=== PATIENT | female | born 1965 | race Caucasian/White ===

== ENCOUNTER → 2023-05-26 13:21 | Outpatient (REF) | payer OTHER, SELFPAY | LOC: RAD 13:21 | PROVIDERS: ATTENDING PHYSICIAN Internal Medicine | DX: I65.21 Occlusion and stenosis of right carotid artery (principal) | CPT/HCPCS: 93880 ==

== ENCOUNTER → 2024-02-24 11:33 | Outpatient (REF) | payer OTHER, SELFPAY | LOC: HWRAD 11:33 | PROVIDERS: ATTENDING PHYSICIAN Internal Medicine Critical Care Medicine; FAMILY PHYSICIAN Internal Medicine | DX: R91.1 Solitary pulmonary nodule (principal) | CPT/HCPCS: 71250 ==

== ENCOUNTER 2024-03-21 12:08 | Emergency (ER) | payer OTHER, SELFPAY ==
[2024-03-21] VITALS (9 sets, daily range): BP systolic 138–178; BP diastolic 63–78; BMI 27.5
[2024-03-21 12:12] LABS: Glucose - Point of Care 101 mg/dl (70-99)
--- NOTE | 2024-03-21 12:23 | ED.GENMED ---
History of Present Illness
General
Chief Complaint: Headache
Time Seen by Provider: 03/21/24 12:14
History of Present Illness
History of Present Illness:
TIME OF INITIAL ENCOUNTER: 12:18 PM
HPI: Patient presents due to severe headache. This started around 9 AM today. It worsened about an hour prior to arrival. She was seen by EMS who noted ill appearance but did not have a focal neurologic examination. tells me that the
patient had a headache last night but similar headaches in the past. Today's headache was markedly worse.
EXAM:
GENERAL: The patient is ill-appearing, she is hypertensive
HEENT: Moist oral mucosa
CARDIOVASCULAR: No murmurs, normal heart rate, regular rhythm, No chest wall tenderness
PULMONARY: No respiratory distress, breath sounds are clear and equal
ABDOMEN: Soft with no peritoneal signs, no tenderness
NEUROLOGIC: Equally weak strength in all extremities, no coordination deficits, speaks in one-word sentences and low-volume
PSYCHIATRIC: Appears lethargic, limited insight and judgement
EXTREMITIES: Nontender, no edema, moves all extremities equally
SKIN: She is diaphoretic
NUMBER AND COMPLEXITY OF PROBLEMS ADDRESSED AT THE ENCOUNTER
� Chronic conditions affecting care: Former smoker, history of depression
� Acute Exacerbation and/or Progression of Chronic Illness: This is an acute problem
� Differential Diagnosis includes: Nonspecific headache, SAH, other intracranial hemorrhage
AMOUNT AND/OR COMPLEXITY OF DATA TO BE REVIEWED AND ANALYZED
� I performed an independent evaluation of and my interpretation is:
EKG: Sinus 42, leftward axis deviation
CT: CT shows large SAH
X-rays:
Laboratory Studies: CBC and chemistries unremarkable, initial glucose 101
Other:
� Review of other/old records: The patient was seen here in 2019 with a laceration
� Clinical information was obtained by an independent historian: I spoke to the at bedside. He also indicates the patient had a minor headache last night similar to what she has had in the past.
� Prescriptions/Medications Considered but not given:
� Further testing considered but not performed: Considered CTA however the flight crew was very quickly available and did not want to delay transfer therefore sent to [place] without CT
RISK OF COMPLICATIONS AND/OR MORBIDITY OR MORTALITY OF PATIENT MANAGEMENT
� Social determinants of health affecting care: Lives at home
� Discussion with other providers: Initially discussed with Dr. Cortes upon arrival; she was sent immediately for CT but bleed noted on CT. I then immediately discussed with Dr. Joleen Gary who recommends flying patient to [place].
Dr. Gay accepts.
� Escalation of care including admission/observation vs risk of discharge considered: Patient transferred to [place]
ANY OTHER UPDATES:
1:11 PM: She has been on Cardene and I gave her a dose of Keppra. Flight crew has arrived.
1:20 PM: Essentially unchanged neurologic examination. She primarily keeps her eyes closed but awakens with stimulation and is interactive.
Past History
Past History
ED Past Medical History: None
ED Past Surgical History: None
Phy Exam
Physical Exam
Physical Exam:
See HPI
Course
Orders/Labs/Results
Orders:
Orders
03/21/24 12:11
Electrocardiogram (*1) Urgent
Reason for Study: Vertigo / Dizzy
CT Head W/o Iv Contrast Urgent
Comment:
Reason For Exam: severe headache
EKG- Treatment ONCE
03/21/24 12:12
Complete Blood Count/With Diff Urgent
Comprehensive Metabolic Panel Urgent
03/21/24 12:25
Levetiracetam Injectable [Keppra] 1,000 mg IV NOW STA
03/21/24 12:29
PT/INR [Prothrombin Time] Urgent
PTT Urgent
Troponin I Urgent
03/21/24 12:30
Nicardipine 40 mg/200 ml [Cardene] 40 mg in 200 ml IV PER PROTOCOL
Initial dose in mg/hr, then titrate:: 2.5
Titrate to keep:: Other
Titrate to keep other:: SBP <110
Titrate by mg/hr:: 2.5 mg/hr
Frequency of titrations (minutes):: 5-15 minutes
Maximum dose in mg/hr:: 15
Begin to taper infusion when:: Remained at goal for 2hrs
Taper by mg/hr:: 2.5 mg/hr
Frequency of taper (minutes) if patient maintains goal:: every 15-30 minutes
Taper to off?: Yes
If infusion off & no longer maintaining goal:: Contact Provider
Abnormal Lab Results
03/21/24 03/21/24
12:10 12:12
Abs Immat Gran (auto) 0.1 H 10^3/uL
(0-0.05)
Absolute Lymphs (auto) 3.6 H 10^3/uL
(1.2-3.4)
Absolute Monos (auto) 0.7 H 10^3/uL
(0.1-0.6)
Immature Gran % 0.8 H %
(0-0.5)
Glucose 112 H mg/dl
(70-99)
AST 52 H U/L
(14-36)
Albumin 5.1 H g/dl
(3.5-5.0)
POC Glucose 101 H mg/dl
(70-99)
03/21/24 12:12
03/21/24 12:12
Vital Signs
Initial and Last Documented VS:
Initial Vital Signs
BP
178/78
03/21/24 12:09
Last Documented Vital Signs
Temp Pulse Resp BP Pulse Ox
36.9 C 57 18 138/63 97
03/21/24 12:10 03/21/24 13:10 03/21/24 13:10 03/21/24 13:10 03/21/24 13:10
*Critical Care Note
Total Time (30-74mins, 75-104mins- exclusive of procedures): 60min
comment:
The patient was seen immediately upon arrival. Large SAH noted. I emergently discussed case with neurosurgery who recommends we fly patient to [place]. Dr. Gay accepts. I have given the patient Cardene as well as Kemichaelra. BP has been improving.
ED Attending Note
-
Portions of this chart may have been created with voice recognition software.� Occasional wrong word or��sound alike� substitutions may have occurred due to the inherent limitations of voice recognition software.
Discharge Plan
Departure
Patient Disposition: Acute Care Hospital
Date of Disposition: 03/21/24
Time of Disposition: 12:32
Discharge Problem:
Subarachnoid hemorrhage
Prescriptions:
No Action
sertraline 50 mg Tablet
50 mg PO DAILY
rosuvastatin [Crestor] 5 mg Tablet
5 mg PO DAILY
acetaminophen [Tylenol] 325 mg Tablet
650 mg PO Q6HPRN PRN (Reason: mild pain)
nicotine (polacrilex) 2 mg Gum
2 mg BUCCAL Q3HPRN PRN (Reason: smoking )
Hospital Transfer
Other hospital: [place]
I certify that the patient requires transfer: Yes
Discussed case with accepting physician: Dr. Gay
Reason for transfer: higher level of care
Interventions
Interventions:
*Risk Screen - Suicide Last Done: 03/21/24 12:10
*General Assessment Last Done: 03/21/24 12:10
*Neglect/Abuse Screening Last Done: 03/21/24 12:10
ED- Fall Risk Assessment Last Done: 03/21/24 12:10
*ED COVID-19 Vaccine History Last Done: 03/21/24 12:10
*Nursing Disposition Last Done: 03/21/24 13:28
ED- Neurological Assessment Last Done: 03/21/24 12:10
Discharge Date and Time
Discharge Date/Time: 03/21/24 13:45
Print Language: MOZAMBICAN
[2024-03-21 12:30] LABS: % Basophils 1.3 % (0-2); % Eosinophils 1.7 % (0-6); % Immature Granulocytes 0.8 % (0-0.5); % Lymphocytes 34.3 % (20.5-51.1); % Monocytes 6.4 % (1.7-9.3); % Neutrophils 55.5 % (42.2-75.2); Absolute Basophils 0.1 10^3/uL (0-0.2); Absolute Eosinophils 0.2 10^3/uL (0-0.7); Absolute Immature Granulocytes 0.1 10^3/uL (0-0.05); Absolute Lymphocytes 3.6 10^3/uL (1.2-3.4); Absolute Monocytes 0.7 10^3/uL (0.1-0.6); Absolute Neutrophils 5.8 10^3/uL (1.4-6.5); Hematocrit 44.5 % (37.0-47.0); Hemoglobin 15.1 g/dL (12.0-16.0); Mean Corp Hgb Conc. 33.9 g/dL (33.0-37.0); Mean Corpuscular Hgb 29.1 pg (27.0-31.0); Mean Corpuscular Volume 85.7 fL (81.0-99.0); Mean Platelet Volume 9.1 fL (7.4-10.4); Nucleated Red Blood Cells % 0 %; Platelet Count 304 10^3/uL (130-400); Red Blood Cell Count 5.19 10^6/uL (4.20-5.40); Red Cell Dist. Width 12.7 % (11.5-14.5); White Blood Cell Count 10.5 10^3/uL (4.8-10.8)
[2024-03-21] MEDS: CARDENE 200 IV (12:34)
[2024-03-21] MEDS: KEPPRA 1000 MG IV (12:34)
[2024-03-21 12:37] LABS: ALT (SGPT) 24 U/L (0-35); AST (SGOT) 52 U/L (14-36); Albumin 5.1 g/dl (3.5-5.0); Alkaline Phosphatase 44 U/L (38-126); Blood Urea Nitrogen 14 mg/dl (7-17); Calcium 9.7 mg/dl (8.4-10.2); Carbon Dioxide 22 mmol/L (22-30); Chloride 107 mmol/L (98-107); Glucose 112 mg/dl (70-99); Potassium 3.6 mmol/L (3.5-5.1); Sodium 144 mmol/L (135-145); Total Bilirubin 0.4 mg/dl (0.2-1.3); Total Protein 7.7 g/dl (6.3-8.2); eGFR > 60.00
--- NOTE | 2024-03-21 12:45 | EDRN ---
Dr. Coles at the bedside speaking with the pts
[2024-03-21 12:50] LABS: APTT 25.1 Sec (23.4-35.0); INR 0.94; PT 12.8 Sec (11.4-14.6)
--- NOTE | 2024-03-21 12:56 | EDRN ---
Cardene gtt started at 2.5mg/hour for hypertension, Keppra IV administered, the pt is resting in stretcher in the lowest position, side rails up x2, call roach within reach, HOB elevated, the pt is obtunded, seizure precautions in place, this RN was
unable to complete NIH stroke assessment, the pt was not able to follow commands, the pt is responsive to painful stimuli, the pts has been update on the plan of care by the provider, machine records units supervisor setting up flight crew to take the pt to [place]
--- NOTE | 2024-03-21 13:09 | EDRN ---
this RN attempted to call verbal report to the receiving [place] nurse at [phone] and there was no answer
[2024-03-21 13:11] LABS: Troponin I < 0.012 ng/ml
--- NOTE | 2024-03-21 13:13 | EDRN ---
[facility] has arrived and is currently at the pts bedside, this RN attempted to call verbal report to the receiving [facility] nurse at [phone] and spoke to the receiving nurse Deepa DUNCAN
--- NOTE | 2024-03-21 13:23 | EDRN ---
unable to test the pts strength due to the pt unable to follow commands, however the pt does move all extremities, + corneal reflex noted, the pts pupils are currently still 4 and slow to respond
== END 2024-03-21 13:45 | disposition short-term general hospital (02) ==
LOC: EMR 12:08
PROVIDERS: EMERGENCY PHYSICIAN Emergency Medicine; FAMILY PHYSICIAN Internal Medicine
DX: I60.9 Nontraumatic subarachnoid hemorrhage, unspecified (principal)
CPT/HCPCS: 99291; 96365; 96375; 70450; 80053; 82962; 84484; 85025; 85610; 85730; 93005

== ENCOUNTER → 2024-06-01 16:20 | Outpatient (REF) | payer OTHER, SELFPAY | LOC: WDC 16:20 | PROVIDERS: ATTENDING PHYSICIAN Obstetrics & Gynecology Gynecology; FAMILY PHYSICIAN Internal Medicine | DX: N60.99 Unspecified benign mammary dysplasia of unspecified breast (principal); M25.551 Pain in right hip; M54.50 Low back pain, unspecified; G89.29 Other chronic pain | CPT/HCPCS: 72110; 73502; 77063; 77067 ==

== ENCOUNTER 2024-08-24 08:42 | Outpatient (RCR) | payer OTHER, SELFPAY | END 2024-08-24 23:59 | disposition home or self-care (01) | LOC: RPT 08:42 | PROVIDERS: ATTENDING PHYSICIAN Orthopaedic Surgery; FAMILY PHYSICIAN Internal Medicine | DX: M25.551 Pain in right hip (principal); Z73.6 Limitation of activities due to disability; M16.11 Unilateral primary osteoarthritis, right hip; M62.81 Muscle weakness (generalized) | CPT/HCPCS: 97110; 97162; 97535 ==

== ENCOUNTER 2024-09-21 18:00 | Outpatient (RCR) | payer OTHER, SELFPAY | END 2024-09-21 23:59 | disposition home or self-care (01) | LOC: RPT 18:00 | PROVIDERS: ATTENDING PHYSICIAN Orthopaedic Surgery; FAMILY PHYSICIAN Internal Medicine | DX: M25.551 Pain in right hip (principal) | CPT/HCPCS: 97110; 97140; 97535 ==

== ENCOUNTER 2024-10-05 17:03 | Outpatient (RCR) | payer OTHER, SELFPAY | END 2024-10-10 07:08 | disposition home or self-care (01) | LOC: RPT 17:03 | PROVIDERS: ATTENDING PHYSICIAN Orthopaedic Surgery; FAMILY PHYSICIAN Internal Medicine | DX: M25.551 Pain in right hip (principal); Z73.6 Limitation of activities due to disability; M62.81 Muscle weakness (generalized); M16.11 Unilateral primary osteoarthritis, right hip | CPT/HCPCS: 97110; 97535 ==

== ENCOUNTER 2024-11-04 19:09 | Emergency (ER) | payer OTHER, SELFPAY ==
[2024-11-04 19:14] VITALS: BP 158/90
[2024-11-04 19:50] LABS: Hematocrit 42.5 % (37.0-47.0); Hemoglobin 13.7 g/dL (12.0-16.0); Mean Corp Hgb Conc. 32.2 g/dL (33.0-37.0); Mean Corpuscular Volume 84.5 fL (81.0-99.0); Nucleated Red Blood Cells % 0 %; Platelet Count 219 10^3/uL (130-400); Red Cell Dist. Width 13.2 % (11.5-14.5)
[2024-11-04 19:56] LABS: ALT (SGPT) 20 U/L (0-35); AST (SGOT) 41 U/L (14-36); Albumin 4.9 g/dl (3.5-5.0); Alkaline Phosphatase 53 U/L (38-126); Blood Urea Nitrogen 16 mg/dl (7-17); Calcium 9.1 mg/dl (8.4-10.2); Carbon Dioxide 25 mmol/L (22-30); Chloride 106 mmol/L (98-107); Glucose 88 mg/dl (70-99); Potassium 4.3 mmol/L (3.5-5.1); Sodium 139 mmol/L (135-145); Total Protein 7.5 g/dl (6.3-8.2); eGFR > 60.00
== END 2024-11-04 23:05 ==
LOC: EMR 19:09
PROVIDERS: Emergency Medicine
DX: R20.0 Anesthesia of skin (principal); Z53.21 Procedure and treatment not carried out due to patient leaving prior to being seen by health care provider
CPT/HCPCS: 70450; 80053; 85025

== ENCOUNTER → 2024-11-11 16:52 | Outpatient (REF) | payer OTHER, SELFPAY | LOC: RAD 16:52 | PROVIDERS: ATTENDING PHYSICIAN Internal Medicine | DX: M25.512 Pain in left shoulder (principal) | CPT/HCPCS: 73030 ==

== ENCOUNTER 2025-01-24 16:02 | Outpatient (RCR) | payer OTHER, SELFPAY | END 2025-01-24 23:59 | disposition home or self-care (01) | LOC: RPT 16:02 | PROVIDERS: ATTENDING PHYSICIAN Specialist; FAMILY PHYSICIAN Internal Medicine | DX: M75.02 Adhesive capsulitis of left shoulder (principal); Z73.6 Limitation of activities due to disability; M62.81 Muscle weakness (generalized) | CPT/HCPCS: 97110; 97162 ==

== ENCOUNTER 2025-02-22 14:27 | Outpatient (RCR) | payer OTHER, SELFPAY | END 2025-02-22 23:59 | disposition home or self-care (01) | LOC: RPT 14:27 | PROVIDERS: ATTENDING PHYSICIAN Specialist; FAMILY PHYSICIAN Internal Medicine | DX: M75.02 Adhesive capsulitis of left shoulder (principal); Z73.6 Limitation of activities due to disability; M62.81 Muscle weakness (generalized) | CPT/HCPCS: 97110; 97112; 97530 ==

== ENCOUNTER 2025-03-21 11:47 | Outpatient (RCR) | payer OTHER, SELFPAY | END 2025-03-21 23:59 | disposition home or self-care (01) | LOC: RPT 11:47 | PROVIDERS: ATTENDING PHYSICIAN Specialist; FAMILY PHYSICIAN Internal Medicine | DX: M75.02 Adhesive capsulitis of left shoulder (principal); Z73.6 Limitation of activities due to disability; M62.81 Muscle weakness (generalized) | CPT/HCPCS: 97110; 97112 ==

== ENCOUNTER → 2025-04-06 14:11 | Outpatient (REF) | payer OTHER, SELFPAY | LOC: HWRAD 14:11 | PROVIDERS: ATTENDING PHYSICIAN Internal Medicine Critical Care Medicine; FAMILY PHYSICIAN Internal Medicine | DX: Z87.891 Personal history of nicotine dependence (principal) | CPT/HCPCS: 71271 ==

== ENCOUNTER 2025-04-24 11:50 | Outpatient (RCR) | payer OTHER, SELFPAY | END 2025-04-24 23:59 | disposition home or self-care (01) | LOC: RPT 11:50 | PROVIDERS: ATTENDING PHYSICIAN Specialist; FAMILY PHYSICIAN Internal Medicine | DX: M75.02 Adhesive capsulitis of left shoulder (principal); Z73.6 Limitation of activities due to disability; M62.81 Muscle weakness (generalized) | CPT/HCPCS: 97110; 97112 ==